=== PATIENT | female | born 1960 | race Caucasian/White ===

== ENCOUNTER → 2018-10-10 09:56 | Outpatient (CLI) | payer BC, SELFPAY ==
--- NOTE | 2018-10-10 10:01 | XR_ITS ---
XR hip LT 2-3V w/pelvis HISTORY: Left hip pain ITS.REASON: lt hip pain ORDERING PHYSICIAN: Emma Syed MD PATIENT AGE: 58 years COMPARISON: None FINDINGS: No fracture or dislocation is evident. No significant degenerative change. No lytic or blastic change. Unremarkable soft tissues IMPRESSION: Negative hip
--- NOTE | 2018-10-10 11:52 | XR_ITS ---
EXAM: XR lumbar spine 2-3V HISTORY: Low back pain ITS.REASON: ap lateral weightbearing ORDERING PHYSICIAN: Emma Syed MD PATIENT AGE: 58 years COMPARISON: None FINDINGS: There is minimal lumbar curvature convex left. Mild degenerative disc disease is present at L1-L2 and L5-S1. No fracture or dislocation. No lytic or blastic change. There is mild degenerative change of the right side joint IMPRESSION: Mild scoliosis with degenerative disc disease at L1-L2 and L5 S1
== END ==
PROVIDERS: PCP Family Medicine; Visit Provider Orthopaedic Surgery
DX: M25.552 Pain in left hip (principal); M54.9 Dorsalgia, unspecified
CPT/HCPCS: 72100; 73502

== ENCOUNTER → 2019-08-03 10:13 | Outpatient (CLI) | payer BC, SELFPAY ==
--- NOTE | 2019-08-03 10:18 | XR_ITS ---
PROCEDURE: XR CHEST 2V CLINICAL HISTORY: COUGH COMPARISON: CXR CHEST(2 VIEWS-NOT PORTABLE) from 12/01/2012 FINDINGS: The lung hollins are well-expanded and appear clear of infiltrate. There is mild or borderline cardiomegaly however the vascularity is normal and there is no pleural fluid. IMPRESSION: No acute findings. Dictated by: Dr. Bartolome Byrne MD 08/03/2019 11:[address] Bartolome Byrne MD in [facility] 08/03/2019 11:00
== END ==
PROVIDERS: PCP Nurse Practitioner Family; Visit Provider Nurse Practitioner Family
DX: R05 Cough (principal)
CPT/HCPCS: 71046

== ENCOUNTER → 2020-05-20 16:27 | Outpatient (CLI) | payer BC, SELFPAY ==
[2020-05-21 09:45] LABS: Covid-19 Nasal PCR Sendout UK NOT DETECTED
== END ==
PROVIDERS: PCP Family Medicine; Visit Provider Family Medicine
DX: Z03.818 Encounter for observation for suspected exposure to other biological agents ruled out (principal)
CPT/HCPCS: U0003

== ENCOUNTER 2021-06-30 08:53 | Emergency (ER) | payer BC, SELFPAY ==
[2021-06-30 09:04] VITALS: BP 181/80; PULSE 70; RESP 18; TEMP 36.8; O2SAT 97
[2021-06-30 09:05] VITALS: BP 181/80; PULSE 70; RESP 18; TEMP 36.8; O2SAT 97; BMI 39.9
--- NOTE | 2021-06-30 09:14 | XR_ITS ---
PROCEDURE: XR FINGER LT MIN 2V CLINICAL INDICATION: cat bite tip of finger COMPARISON: No exams were available for comparison FINDINGS: Comminuted minimally displaced fracture involving the tuft of the distal phalanx of 5th digit. No radiopaque foreign body. The distal fracture fragment is slightly displaced medially and anteriorly by 1-2 mm. IMPRESSION: Comminuted minimally displaced fracture tuft of the distal phalanx of the 5th digit Dictated by: Danial Vail MD 06/30/2021 10:32 Danial Vail MD in [facility] 06/30/2021 10:32
--- NOTE | 2021-06-30 09:21 | PC.NURSE ---
pt went to xray
--- NOTE | 2021-06-30 09:25 | PC.NURSE ---
Pt is back in room
[2021-06-30 09:30] VITALS: BP 139/54; PULSE 59; O2SAT 95
[2021-06-30 09:40] LABS: POC Glucose,Bedside 149 (70-110)
--- NOTE | 2021-06-30 09:55 | HMH.EDGENADL ---
ED Disposition Clinical Impression: Fracture of distal phalanx of finger Qualifiers: Encounter type: initial encounter Finger: little finger Fracture type: open Fracture alignment: displaced Laterality: left Qualified Code(s): S62.637B - Displaced fracture of distal phalanx of left little finger, initial encounter for open fracture Nailbed laceration, finger Qualifiers: Encounter type: initial encounter Qualified Code(s): S61.319A - Laceration without foreign body of unspecified finger with damage to nail, initial encounter Disposition: Home, Self-Care Condition on Discharge: Good Instructions: DI for Cat Bite, DI for Finger Fracture, DI for Laceration Repair Additional Instructions: Follow-up with orthopedics, Dr. Silva, next week. Call Saturday to make appointment. Take Augmentin as prescribed. [place] as needed for pain. Additional instructions for HAND LACERATION: Clean the wound daily with soap and water. Avoid submerging the wound. No swimming.reapply bandage and splint after cleansing. Return if any signs of infection including increasing pain, pus drainage, swelling, redness, red streaks, or fever. Additional instructions for CONTROLLED SUBSTANCES: You have been prescribed a medication that is a controlled substance. Controlled substances include pain medications known as opiates and sedative nerve medications known as benzodiazepines. Tramadol, fioricet, and gabapentin are also controlled substances. Some common opiates include: Codeine (such as Tylenol #3) Hydrocodone (Vicodin, Lortab, Lorcet, [place]) Oxycodone (Percocet, Percodan, Oxycodone, Oxy IR) Some common benzodiazepines include: Diazepam (Valium) Lorazepam (Ativan) Alprazolam (Xanax) Clonazepam (Klonopin) Oxazepam (Serax) All of these controlled substances are highly addictive and frequently abused. Misuse can and frequently does lead to addiction as well as overdose and . Medication should be stored in a locked cabinet or other secure storage unit. Do not store the medication in a motor vehicle. Short term supplies, 3 days or less, are prescribed because of the highly addictive nature of the medication. Any of the controlled substance medication NOT taken should be disposed of properly and NOT SAVED. The recommended method of disposing of unused medications is: Place the medicines in a sealable plastic bag. If the medicine is a solid, crush it or add water to dissolve it. Add something undesirable (cat litter, coffee grounds, etc.) Dispose of sealed bag in household trash Do not flush or pour unused medicines down a sink or drain. Controlled substances should not be shared, given away or sold. Because of the addictive nature and frequent abuse, these medications are sometimes stolen. These medications should be kept in a safe place where they cannot be stolen. Do not keep them in your car or purse. Lost or stolen prescriptions for controlled substances WILL NOT BE REFILLED in this emergency department, regardless of whether a police report was filed. Prescriptions: Hydrocod/Acet 5/325 mg [[place] 5/325mg tablet] 1 tab PO Q6HP PRN #10 tab PRN Reason: Pain Transmission Status: Sent to [facility] Amoxicillin/Potassium Clav [Augmentin 875-125 Tablet] 1 tab PO Q12H #20 tab Transmission Status: Pending to [facility] Referrals: Deven Zurita MD [Primary Care Provider] - Yoseph Silva JR, MD [Physician] - - Critical Care Critical Care Time: No Attestation: On 06/30/21, the high probability of a clinically significant, sudden or life threatening deterioration of the following system(s) required my full and direct attention, intervention and personal management. The time I documented below is in addition to time spent performing reported procedures but includes the following listed in this critical care notation. Medical Decision Making - Lewis Inquiry Pt receiving controlled substance: Yes Ka
[2021-06-30 10:59] VITALS: BP 159/70; PULSE 69; RESP 18; TEMP 37; O2SAT 100
== END 2021-06-30 10:59 | disposition home or self-care (01) ==
PROVIDERS: Emergency Provider Emergency Medicine; PCP Family Medicine
DX: S62.637B Displaced fracture of distal phalanx of left little finger, initial encounter for open fracture (principal); S61.317A Laceration without foreign body of left little finger with damage to nail, initial encounter; Z23 Encounter for immunization; W55.01XA Bitten by cat, initial encounter; Y92.019 Unspecified place in single-family (private) house as the place of occurrence of the external cause; E11.9 Type 2 diabetes mellitus without complications; I10 Essential (primary) hypertension; Z88.5 Allergy status to narcotic agent; F33.1 Major depressive disorder, recurrent, moderate
CPT/HCPCS: 11760; 26742; 73140; 82962; 90715; 96372; 99283

== ENCOUNTER → 2021-10-12 10:51 | Outpatient (CLI) | payer BC, SELFPAY ==
[2021-10-12 11:45] LABS: Chloride 102 mmol/L (98-107); Sodium 135 mmol/L (136-145)
[2021-10-12 11:46] LABS: Potassium 4.9 mmoL/L (3.5-5.1)
[2021-10-12 11:48] LABS: Blood Urea Nitrogen 25 mg/dl (7-17); Estimated Glomerular Filt Rate 73 ml/min (>60); GFR (African American) 88 ML/MIN (>60)
[2021-10-12 11:49] LABS: Anion Gap 12.9 mEq/L (5-15); Calcium 8.7 mg/dl (8.4-10.2); Carbon Dioxide 25 mmol/L (22.0-30.0); Glucose 133 mg/dl (74-100)
[2021-10-12 12:10] LABS: Free T4 (Free Thyroxine) 1.26 ng/dl (0.78-2.19)
[2021-10-12 12:11] LABS: Hemoglobin A1C 7.3 % (4.0-6.0)
[2021-10-12 12:25] LABS: Thyroid Stimulating Hormone 0.14 uIU/mL (0.465-4.68)
== END ==
PROVIDERS: Visit Provider Internal Medicine
DX: E11.9 Type 2 diabetes mellitus without complications (principal); Z79.84 Long term (current) use of oral hypoglycemic drugs; Z79.899 Other long term (current) drug therapy
CPT/HCPCS: 36415; 80048; 83036; 84439; 84443

== ENCOUNTER 2022-07-17 10:58 | Emergency (ER) | payer BC, SELFPAY ==
[2022-07-17 11:18] VITALS: BP 178/71; PULSE 78; RESP 18; TEMP 37; O2SAT 96; BMI 39.9
--- NOTE | 2022-07-17 11:28 | EXP.UTC ---
Discharge Plan Disposition Patient Disposition: Home, Self-Care Condition: Good Prescriptions Prescriptions: New amoxicillin-pot clavulanate [Augmentin] 500-125 mg tablet 1 tab PO Q12H 10 Days Qty: 20 0RF No Action quinapril 40 mg tablet 40 mg PO DAILY spironolactone 25 mg tablet 25 mg PO DAILY Jardiance 25 mg tablet 25 mg PO DAILY levothyroxine 100 mcg capsule 100 mcg PO DAILY escitalopram oxalate [Lexapro] 20 mg tablet 20 mg PO DAILY metformin 500 mg tablet 500 mg PO BID hydrocodone-acetaminophen 1 TAB tablet 1 tab PO Q6HP PRN (Reason: Pain) Qty: 10 0RF amoxicillin-pot clavulanate 1 EACH tablet 1 tab PO Q12H Qty: 20 0RF acyclovir 800 MG tablet 800 mg PO 5XDAY Qty: 25 1RF Referrals Follow up/Referrals: Yary Day MD [Primary Care Provider] - See instructions Activity Restrictions/Add. Instructions Additional Instructions/Restrictions: keep area clean and dry follow up with pcp if symptoms worsen or do not improve return or be seen in ed Clinical Impressions Clinical Impression: Cat bite of finger Instructions Patient Instructions: DI for Cat Bite Discharge ED Provider: Sis ([facility] [facility] [place] General Stated complaint: Cat bite RT index finger 07/16 Mode of Arrival: Ambulatory Source of Information: Patient Limitations: No Limitations Time Seen by Provider: 07/17/22 11:28 Description of Symptoms (Recalled from Triage Doc. by RN): pt comes in with c/o cat bite to left index finger. happened yesterday HEENT Symptoms (Recalled from RN notes): No Resp Symptoms (Recalled from RN notes): No Skin Symptoms (Recalled from RN notes): Yes MS Symptoms (Recalled from RN notes): No Functional Status (Recalled from RN notes): n/a History of Present Illness Provider Complaint: 62 yr old female presents for c/o cat bite to left index finger. happened yesterday pt states she was taking a 4 week old kitten out of a cage and it bite her. Related Data Home Medications Medication Instructions Recorded Confirmed empagliflozin 25 mg tablet 25 mg PO DAILY 10/10/18 10/10/18 (Jardiance) escitalopram oxalate 20 mg tablet 20 mg PO DAILY 10/10/18 10/10/18 (Lexapro) levothyroxine 100 mcg capsule 100 mcg PO DAILY 10/10/18 10/10/18 metformin 500 mg tablet 500 mg PO BID 10/10/18 10/10/18 quinapril 40 mg tablet 40 mg PO DAILY 10/10/18 10/10/18 spironolactone 25 mg tablet 25 mg PO DAILY 10/10/18 10/10/18 Previous Rx's Medication Instructions Recorded acyclovir 800 mg tablet 800 mg PO 5XDAY #25 tabs 09/01/19 amoxicillin 875 mg-potassium 1 tab PO Q12H #20 tabs 06/30/21 clavulanate 125 mg tablet hydrocodone 5 mg-acetaminophen 325 1 tab PO Q6HP PRN Pain #10 tabs 06/30/21 mg tablet amoxicillin 500 mg-potassium 1 tab PO Q12H 10 days #20 tabs 07/17/22 clavulanate 125 mg tablet (Augmentin) Allergies Allergy/AdvReac Type Severity Reaction Status Date / Time morphine Allergy Verified 07/17/22 11:21 Codeine Allergy Unknown GI UPSET Uncoded 07/23/17 14:30 From [facility] Allergy Unknown GI UPSET Uncoded 07/23/17 14:30 Worker's Comp Is this a Worker's Comp case?: No [facility] Disclaimer: The information contained in this section may have been updated after the patient was seen, as this information can be updated by other users. 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
[2022-07-17 11:51] VITALS: BP 178/71; PULSE 78; RESP 18; TEMP 37
== END 2022-07-17 11:51 | disposition home or self-care (01) ==
PROVIDERS: Emergency Provider Nurse Practitioner Family; PCP Family Medicine
DX: S61.250A Open bite of right index finger without damage to nail, initial encounter (principal); W55.01XA Bitten by cat, initial encounter
CPT/HCPCS: 99212; G0463

== ENCOUNTER → 2023-03-12 12:39 | Outpatient (CLI) | payer BC, SELFPAY ==
[2023-03-12 13:08] LABS: Creatinine,Urine Random 72 mg/dL (Not Estab.)
[2023-03-12 13:16] LABS: Microalbumin < 6.000 mg/L (0-16.7)
[2023-03-12 15:24] LABS: Alanine Aminotransferase 31 U/L (12-78); Albumin Level 4.8 g/dl (3.5-5.0); Albumin/Globulin Ratio 1.7 (1.1-1.8); Alkaline Phosphatase 85 U/L (38-126); Aspartate Amino Transferase 30 U/L (14-36); Bilirubin,Total 0.3 mg/dl (0.2-1.3); Blood Urea Nitrogen 20 mg/dl (7-17); Calcium 9.8 mg/dl (8.4-10.2); Carbon Dioxide 26 mmol/L (22.0-30.0); Chloride 101 mmol/L (98-107); Chol/HDL Ratio 3.2 (1-3.5); Cholesterol 154 mg/dl (140-200); Estimated Glomerular Filt Rate 56 ml/min (>60); GFR (African American) 68 ML/MIN (>60); Globulin 2.9 g/dL (1.3-3.2); Glucose 131 mg/dl (74-100); HDL Cholesterol 48 mg/dl (40-60); Sodium 140 mmol/L (136-145); Total Protein,Serum 7.7 g/dl (6.3-8.2); Triglycerides 237 mg/dl (30-150); VLDL Cholesterol 47 mg/dL (0-40)
[2023-03-12 15:35] LABS: Direct LDL Cholesterol 64.72 mg/dL (100-129)
[2023-03-12 15:56] LABS: Thyroid Stimulating Hormone 0.51 uIU/mL (0.465-4.68)
== END ==
LOC: LAB 12:39
PROVIDERS: PCP Family Medicine; Visit Provider Internal Medicine
DX: E11.9 Type 2 diabetes mellitus without complications (principal); E03.9 Hypothyroidism, unspecified; Z79.84 Long term (current) use of oral hypoglycemic drugs
CPT/HCPCS: 36415; 80053; 80061; 82043; 82570; 84443

== ENCOUNTER → 2023-05-21 15:42 | Outpatient (CLI) | payer BC, SELFPAY ==
--- NOTE | 2023-05-21 15:46 | MM_ITS ---
PROCEDURE INFORMATION: Exam: MG Bilateral Screening 3D Mammography Exam date and time: 05/21/2023 3:49 PM Age: 62 years old Clinical indication: Screening examination; No personal or family history of breast cancer TECHNIQUE: Imaging protocol: Bilateral Screening tomosynthesis and 2D mammography including computer-aided detection (CAD) when performed. COMPARISON: No relevant prior studies available. FINDINGS: MAMMOGRAPHY: Breast composition: The breasts are heterogeneously dense, which may obscure small masses. Mass: None. Architectural distortion: None. Calcifications: No suspicious calcifications. Asymmetric density: None. Skin thickening: None. Axillary adenopathy: None. IMPRESSION: No mammographic evidence of malignancy. Annual screening is recommended unless otherwise clinically indicated. ASSESSMENT: BI-RADS Category 1: Negative
== END ==
PROVIDERS: PCP Family Medicine; Visit Provider Emergency Medicine
DX: Z12.31 Encounter for screening mammogram for malignant neoplasm of breast (principal)
CPT/HCPCS: 77063; 77067

== ENCOUNTER 2024-07-07 14:15 | Outpatient (CLI) | payer MEDICARE, SELFPAY ==
[2024-07-07 16:55] LABS: Thyroid Stimulating Hormone 0.58 uIU/mL (0.465-4.68)
== END 2024-07-07 23:59 | disposition home or self-care (01) ==
LOC: LAB 14:24
PROVIDERS: PCP Emergency Medicine; Visit Provider Internal Medicine
DX: E03.9 Hypothyroidism, unspecified (principal)
CPT/HCPCS: 36415; 84443

== ENCOUNTER 2025-05-18 15:42 | Outpatient (CLI) | payer MEDICARE, SELFPAY ==
--- NOTE | 2025-05-18 15:45 | MM_ITS ---
PROCEDURE INFORMATION: Exam: MG Bilateral Screening 3D Mammography Exam date and time: 05/18/2025 3:54 PM Age: 64 years old Clinical indication: Screening examination TECHNIQUE: Imaging protocol: Bilateral Screening tomosynthesis and 2D mammography including computer-aided detection (CAD) when performed. COMPARISON: MG MM DIG SCREENING MAMM BI W/CAD 05/21/2023 3:49 PM FINDINGS: MAMMOGRAPHY: Breast composition: The breasts are heterogeneously dense, which may obscure small masses. Mass: No suspicious masses. Architectural distortion: None. Calcifications: No suspicious calcifications. Asymmetric density: None. Skin thickening: None. Axillary adenopathy: None. IMPRESSION: No mammographic evidence of malignancy. Annual screening is recommended unless otherwise clinically indicated. ASSESSMENT: BI-RADS Category 1: Negative.
--- OUTSIDE RECORDS SUMMARY | 2025-05-18 15:47 | XMS_ITS | Encounter Summary ---
Author Organization [facility] Address [address] [place] [address] Care Team Providers Care Network Contractor Name Role Phone Ab Day MD Primary Care Provider [phone] Encounter Details Date Type Department Care Team (Late Contact Info) Description 02/23/2025 Results Follow-Up [facility] Endocrinology [address] [place] [address] Dianna Washington, ROTARY DERRICK OPERATOR [address] [address] Social History Tobacco Use Types Packs/Day Years Used Date Smoking Tobacco: Former Cigarettes 0 01/01/1977 - 03/19/1982 Smokeless Tobacco: Never Alcohol Use Standard Drinks/Week Comments Not Currently 3 (1 standard drink = 0.6 oz pure alcohol) Alcoholic Drinks/day: Alcohol Comments Unknown Sex and Gender Information Value Date Recorded Sex Assigned at Not on file Legal Sex Female 6:52 PM EDT Gender Identity Not on file Sexual Orientation Not on file documented as of this encounter Plan of Treatment Upcoming Encounters Date Type Department Care Team (Late st Contact Info) Description 06/02/2025 2:20 PM EDT [facility] [address] [place] [address] Dianna Washington, ROTARY DERRICK OPERATOR [address] [address] documented as of this encounter Visit Diagnoses Not on filedocumented in this encounter Additional Health Concerns Assessment Noted Time A fall risk assessment has been complete d for the patient 02/22/2025 12:37 PM EDT A Body Mass Index follow-up plan has been documented for the patient 02/26/2025 6:41 PM EDT documented as of this encounter Care Teams Network Contractor Relationship Specialty Start Date End Date Ab Day MD [address] [place] [address] [address] [place] [address] PCP - General 10/16/22 documented as of this encounter
--- OUTSIDE RECORDS SUMMARY | 2025-05-18 15:47 | XMS_ITS | Encounter Summary ---
Author Organization [facility] Address [address] [place] [address] Care Team Providers Care Superintendent Transmission Name Role Phone Deven Zurita MD Primary Care Provider [phone] Ab Day MD Primary Care Provider [phone] Reason for Visit * Reason Comments Med Refill Encounter Details Date Type Department Care Team (Late Contact Info) Description 01/12/2021 Refill [facility] Endocrinology [address] [place] [address] Indio Porter MD [address] [place] [address] Social History Tobacco Use Types Packs/Day Years Used Date Smoking Tobacco: Former Alcohol Use Standard Drinks/Week Comments Yes 0 (1 standard drink = 0.6 oz pur e alcohol) Alcoholic Drinks/day: Alcohol Comments Unknown Sex and Gender Information Value Date Recorded Sex Assigned at Not on file Legal Sex Female 6:52 PM EDT Gender Identity Not on file Sexual Orientation Not on file documented as of this encounter Plan of Treatment Upcoming Encounters Date Type Department Care Team (Late Contact Info) Description 06/02/2025 2:20 PM EDT Office Visit [facility] Endocrinology [address] [place] [address] Dianna Washington, COST REPORT CLERK [address] [facility] [address] [place] [address] documented as of this encounter Visit Diagnoses Not on filedocumented in this encounter Care Teams Superintendent Transmission Relationship Specialty Start Date End Date Deven Zurita MD [address] [place] [address] PCP - General 12/16/20 10/15/22 Ab Day MD [address] [place], [place] [id number] [address] [place] [address] PCP - General 10/16/22 documented as of this encounter
--- OUTSIDE RECORDS SUMMARY | 2025-05-18 15:47 | XMS_ITS | Encounter Summary ---
Author Organization [facility] Address [address] [place] [address] Care Team Providers Care Food Service Employee Name Role Phone Deven Zurita MD Primary Care Provider [phone] Ab Day MD Primary Care Provider [phone] Reason for Visit * Reason Comments Med Refill Encounter Details Date Type Department Care Team ([facility] Contact Info) Description 01/03/2022 Refill [facility] Endocrinology [address] [place] [address] Indio Porter MD [address] [address] Type 2 diabetes mellitus with other specified complication, with long-term current use of insulin ([facility]) Social History Tobacco Use Types Packs/Day Years Used Date Smoking Tobacco: Former Smokeless Tobacco: Never Alcohol Use Standard Drinks/Week Comments Yes 0 [...] Description 06/02/2025 2:20 PM EDT Office Visit [facility] Endocrinology [address] [place] [address] Dianna Washington, MORTGAGE PROCESSING CLERK [address] [facility] [address] [place] [address] documented as of this encounter Visit Diagnoses Diagnosis Type 2 diabetes mellitus with other specified complication, with long-term current use of insulin documented in this encounter Care Teams Food Service Employee Relationship Specialty Start Date End Date Deven Zurita MD [address] [place] [address] PCP - General 12/16/20 10/15/22 Ab Day MD [address] [place] [address] [address] [place] [address] PCP - General 10/16/22 documented as of this encounter
--- OUTSIDE RECORDS SUMMARY | 2025-05-18 15:47 | XMS_ITS | Encounter Summary ---
Author Organization [facility] Address [address] [place] [address] Care Team Providers Care Bobbin Cleaner Hand Name Role Phone Deven Zurita MD Primary Care Provider [phone] Ab Day MD Primary Care Provider [phone] Reason for Visit * Reason Comments Med Refill Encounter Details Date Type Department Care Team (Late st Contact Info) Description 09/27/2021 Refill [facility] Endocrinology [address] [place] [address] Indio Porter MD [address] [address] Social History Tobacco Use Types [...] on file documented as of this encounter Miscellaneous Notes * Telephone Encounter - Keysha Moses RN - 10/02/2021 2:25 PM EST Appointment for follow up and refills scheduled on 10.03.21. SRESHMA Link * Telephone Encounter - Wendie Blum RD - 09/28/2021 12:18 PM EST rx for insulin already sent in documented in this encounter Plan of Treatment Upcoming Encounters Date Type Department Care Team (Late st Contact Info) Description 06/02/2025 2:20 PM EDT Office Visit [facility] Endocrinology [address] [place] [address] Dianna Washington, FRUIT PACKER FACE AND FILL [address] [facility] [address] [place] [address] documented as of this encounter Visit Diagnoses Not on filedocumented in this encounter Care Teams Bobbin Cleaner Hand Relationship Specialty Start Date End Date Deven Zurita MD [address] [place] [address] PCP - General 12/16/20 10/15/22 Ab Day MD [address] [place] [address] [address] [place] [address] PCP - General 10/16/22 documented as of this encounter
--- OUTSIDE RECORDS SUMMARY | 2025-05-18 15:47 | XMS_ITS | Encounter Summary ---
Author Organization [facility] Address [address] [place] [address] Care Team Providers Care Adult Ministries Director Name Role Phone Deven Zurita MD Primary Care Provider [phone] Ab Day MD Primary Care Provider [phone] Reason for Visit * Reason Comments Med Refill Encounter Details Date Type Department Care Team (Late st Contact Info) Description 03/31/2021 Refill [facility] Endocrinology [address] [place] [address] Indio Porter MD [address] [address] Social History Tobacco Use Types [...] encounter Miscellaneous Notes * Telephone Encounter - Indio Porter MD - 04/07/2021 12:43 PM EDT Would you please refill for her 125 mcg daily, 90 days, 3 refills * Telephone Encounter - Indio Porter MD - 04/04/2021 5:48 PM EDT I saw the lab I ordered documented in this encounter Plan of Treatment Upcoming Encounters Date Type Department Care Team (Late st Contact Info) Description 06/02/2025 2:20 PM EDT Office Visit [facility] Endocrinology [address] [place] [address] Dianna Washington, FOLDER SEAMER [address] [facility] [address] [place] [address] documented as of this encounter Visit Diagnoses Not on filedocumented in this encounter Care Teams Adult Ministries Director Relationship Specialty Start Date End Date Deven Zurita MD [address] [place] [address] PCP - General 12/16/20 10/15/22 Ab Day MD [address] [place] [address] [address] [place] [address] PCP - General 10/16/22 documented as of this encounter
--- OUTSIDE RECORDS SUMMARY | 2025-05-18 15:47 | XMS_ITS | Clinical Summary ---
Author Organization [facility] Address [address] [place] [address] Care Team Providers Care Cinetechnician Name Role Phone Ab Day MD Primary Care Provider [phone] Allergies Active Allergy Reactions Criticality Noted Date Comments Codeine Vomiting 07/23/2017 Diphenhydramine Unknown - Patient st ates they do not know rxn details Low 04/06/2020 Meperidine Other - please docum ent in the comment field Low 03/27/2012 Morphine Unknown - Patient st ates they do not know rxn details Low 09/11/2012 Pseudoephedrine Unknown - Patient st ates they do not know rxn details Low 10/02/2019 Medications albuterol 108 (90 Base) MCG/ACT inhaler 1 Active Aspirin Buf,ElJcpd-HgMmly-V gO, 81 MG tablet 8 Active escitalopram (Lexapro) 20 MG tablet TAKE 1 TABLET DAILY. 3 Active loratadine (Claritin) 10 MG tablet TAKE TABLET NEEDED 3 Active valsartan (Diovan) 160 MG tablet 2 Active spironolactone (Aldactone) 25 MG tabletIndications:P olycystic ovarian syndrome TAKE 1 TABLET BY MOUTH ONCE DAILY 90 tablet 2 3 Active ondansetron ODT (Zofran-ODT) 4 MG disintegrating tablet 4 Active zolpidem (Ambien) 10 MG tablet 4 Active LORazepam (Ativan) 1 MG tablet Take 0.5 tablets (0.5 mg) by mouth every 6 (six) hours if needed. 4 Active pen needle, diabetic (B-D UF III MINI PEN NEEDLES) 31G X 5 MM miscIndications:Chitra weiss mellitus type 2 without retinopathy Inject 1 each under the skin 2 (two) times a day. 100 each 2 4 Active Blood Glucose Monitoring Suppl (Blood Glucose Monitor System) w/Device kitIndications:Type 2 diabetes mellitus with other specified complication, with long-term current use of insulin Test 3 times each day, Dx E11.9 1 kit 4 Active Glucose Blood (Blood Glucose Test) stripIndications:Ty pe 2 diabetes mellitus with other specified complication, with long-term current use of insulin Use as directed to test blood glucose level 3 times per day DX E11.9 150 strip 11 4 Active Lancets miscIndications:Typ e 2 diabetes mellitus with other specified complication, with long-term current use of insulin Use to test blood glucose level up to 3 times per day DX E11.9 150 each 11 4 Active Bempedoic Acid 180 MG tabletIndications:M ixed hyperlipidemia Take 180 mg by mouth daily. 90 tablet 1 5 Active empagliflozin (Jardiance) 25 MGIndications:Type 2 diabetes mellitus with other specified complication, with long-term current use of insulin Take 1 tablet by mouth daily. 90 tablet 3 5 02/23/20 26 Active metFORMIN (Glucophage) 1000 MG tabletIndications:T ype 2 diabetes mellitus with other specified complication, with long-term current use of insulin Take 1 tablet by mouth 2 times a day with meals. 180 tablet 3 5 02/23/20 26 Active insulin lispro protamine-insulin lispro (HumaLOG MIX 75/25 KWIKPEN) (75-25) 100 UNIT/ML injection penIndications:Type 2 diabetes mellitus with other specified complication, with long-term current use of insulin Inject 10 units in the AM and 32 units nightly before meals. Adjust doses with CGM, MDD 60 units. 60 mL 3 5 Active semaglutide (Ozempic, 2 MG/DOSE,) 8 MG/3ML solution pen-injectorIndicat ions:Type 2 diabetes mellitus with other specified complication, with long-term current use of insulin Inject 2 mg under the skin 1 time per week. 9 mL 3 5 02/23/20 Active levothyroxine (Synthroid, Levoxyl) 125 MCG tabletIndications:H ypothyroidism, unspecified type Take 1 tablet by mouth daily. 90 tablet 3 5 02/27/20 Active Active Problems Problem Noted Date Diagnosed Date Obesity (BMI 30-39.9) 02/26/2025 Other fatigue 02/26/2025 Hyperlipidemia 10/28/2024 Class 2 severe obesity due t o excess calories with serious comorbidity and body mass index (BMI) of 37.0 to 37.9 in adult 03/08/2023 Morbid obesity with body mass index (BMI) of 40. 0 or higher 03/01/2022 Glaucoma suspect of both eyes 05/27/2020 Vitreous floaters of both eyes 05/27/2020 Hypercalcemia 05/26/2019 Asthma 09/11/2012 Depression 09/11/2012 Type 2 diabetes mellitus, wi long-term current use of insulin 09/11/2012 Essential (primary) hypertension 09/11/2012 Hypothyroidism 09/11/2012 Polycystic ovarian syndrome 09/11/2012 Resolved Problems Problem Noted Date Diagnosed Date Resolved Date Nuclear sclerosis of both eyes 05/27/2020 04/25/2025 Encounters Date Type Department Care Team Description 02/23/2025 Results Follow-Up [facility] Endocrinology [address] [place] [address] Dianna Washington APRN 02/22/2025 12:20 PM EDT Office Visit [facility] End[facility]ology [address] [place] [address] Dianna Washington, MOTOR BOSS Type 2 diabetes mellitus with other specified complication, with long-term current use of insulin ([facility]) (Primary Dx); Hypothyroidism, unspecified type; Other fatigue; Obesity (BMI 30-39.9); Hyperlipidemia, unspecified hyperlipidemia type 02/22/2025 Travel 02/17/2025 Travel from Last 3 Months Immunizations Immunization Administration Dates Next Due Influenza, seasonal, injectable 04/05/2011 Pneumococcal Polysaccharide PPV23 06/05/2011 TD (adult), 2 Lf tetanus tox oid, preservative free, adsorbed 08/05/2001 Family History Medical History Relation Name Comments Heart disease Father Elmer Hypertension Father Elmer Obesity Father [place] Diabetes Mother Devin Diabetes type II Mother Edvin Heart disease Mother Devin Hypertension Mother Devin Thyroid disease Mother Devin Diabetes Other 1 Heart disease Other 2 Hypertension Other 3 Diabetes type II Sister Nancy Thyroid disease Sister Nancy Relation Name Status Comments Father Elmer Mother Devin Other 1 Other 2 Other 3 Sister Nancy Social History Tobacco Use Types Packs/Day Years [...] on file Sexual Orientation Not on file Last Filed Vital Signs Vital Sign Reading Time Taken Comments Blood Pressure 137/80 02/22/2025 12:35 PM EDT Pulse 78 10/23/2024 11:03 AM EDT Temperature 37.1 C (98.7 F) 06/04/2019 9:21 AM EDT Respiratory Rate - - Oxygen Saturation - - Inhaled Oxygen Concentration - - Weight 105 kg (231 lb 7.7 oz) 02/22/2025 12:35 P M EDT Height 165.1 cm (5' 5 ) 02/22/2025 12:35 PM EDT Body Mass Index 38.52 02/22/2025 12:35 PM EDT Plan of Treatment Upcoming Encounters Date Type Department Care Team (Late st Contact Info) Description 06/02/2025 2:20 PM EDT [facility] [address] [place] [address] Dianna Washington, MOTOR BOSS [address] [place] [address] Health Maintenance Due Date Last Done Comments [facility]-Bone Density Scan 1959 [facility]-Depression Screening 1959 [facility]-Hepatitis C Screening 1959 [facility]-Medicare Annual Wellness (AWV) 1959 [facility]-Infant/Child/Adol SDOH Screenings 1959 Diabetes: Dental Exam 1969 [facility]- SDOH Screenings 1977 [facility]-Adult SDOH Screenings 1977 CT Colonography 2004 Colonoscopy 2004 FIT-DNA 2004 FIT 2004 FOBT 2004 Sigmoidoscopy 2004 [facility]-Colorectal Cancer Screening 2004 [facility]-Breast Cancer Screening 2009 [facility]-Zoster Vaccines (1 of 2) 2009 [facility]-Pneumococcal Vaccine: 50+ Years (2 of 2 - PCV) 06/05/2012 06/05/2011 [facility]-RSV Vaccine: 60+ Years or (1 - Risk 60-74 years 1-dose series) 2019 [id number] Vaccine ( - season) 2025 06/21/2021, 11/02/2020, 10/05/2020 [facility]-Influenza Vaccine (#1) 04/05/202506/11, 05/31/2021, 04/05/2011 [facility]-Diabetes: Hemoglobin A1C 2025, 10/23/2024, 06/26/2024, Additional history exists [facility]-DTaP,Tdap,and Td Vaccines (2 - Td or Tdap) 06/30/2031 06/30/2021, 08/05/2001 [facility]-Hepatitis A Vaccines Aged Out 07/18/2018 No longer eligible based on patient's age to complete this topic [facility]-Obesity Intervention Completed 025, 10/23/2024, 06/26/2024, Additional history exists HPV Vaccines Aged Out No longer eligi ble based on patient's age to complete this topic [facility]-HIB Vaccines Aged Out No longer e ligible based on patient's age to complete this topic [facility]-IPV Vaccines Aged Out No longer e ligible based on patient's age to complete this topic [facility]-Rotavirus Vaccines Aged Out No lo nger eligible based on patient's age to complete this topic Procedures Procedure Name Priority Date/Time Associated Diagnosis Comments VITAMIN D, 1, 25-DIHYDROXY Routine 02/22/2025 1:30 PM EDT Type 2 diabetes mellitus with other specified complication, with long-term current use of insulin (CMS/HCC) Other fatigue VITAMIN B12, SERUM Routine 02/22/2025 1: 30 PM EDT Type 2 diabetes mellitus with other specified complication, with long-term current use of insulin (CMS/[facility]) Other fatigue TSH REFLEX FT4 Routine 02/22/2025 1:30 PM EDT Type 2 diabetes mellitus with other specified complication, with long-term current use of insulin (CMS/[facility]) Other fatigue POCT GLYCOSYLATED HEMOGLOBIN (HGB A1C) Routine 02/22/2025 12:56 PM EDT Type 2 diabetes mellitus with other specified complication, with long-term current use of insulin (CMS/[facility]) from Last 3 Months Results * TSH Reflex FT4 (02/22/2025 1:30 PM EDT) Thyroid Stimulating Hormone, Plasma 0.70 0.40 - 4.20 uIU/mL 02/22/2025 5:51 PM EDT [facility] Blood Venous blood specimen / Unknown Venipuncture / Unknown 02/22/2025 1:30 PM EDT 02/22/2025 3:40 PM EDT Dianna Washington APRN LAB BLOOD ORDERABLES Final Result [facility] [address] [place] [address] * Vitamin D 1,25 dihydroxy (02/22/2025 1:30 PM EDT) VITAMIN D, 1, 25-DIHYDROXY 35.6 19.9 - 79.3 pg/mL 02/25/2025 5:31 AM EDT [facility] Blood Venous blood specimen / Unknown Venipuncture / Unknown 02/22/2025 1:30 PM EDT 02/22/2025 3:40 PM EDT Dianna L Felix MOTOR BOSS LAB BLOOD ORDERABLES Final Result Performing Organization Address City/[facility]/ZIP Co de Phone Number [facility] [address] [place] [address] * Vitamin B12 (02/22/2025 1:30 PM EDT) [facility] Vitamin B12, Serum 482 210 - 1,033 pg/mL 02/22/2025 5:57 PM EDT [facility] Blood Venous blood specimen / Unknown Venipuncture / Unknown 02/22/2025 1:30 PM EDT 02/22/2025 3:40 PM EDT Dianna L Felix MOTOR BOSS LAB BLOOD ORDERABLES Final Result Performing Organization Address [facility] Co de Phone Number [facility] [address] [place] [address] * POCT glycosylated hemoglobin (Hb A1C) (02/22/2025 12:56 PM EDT) [facility] POCT Hemoglobin A1C 7.1 <5.7% Non-Diabet ic % [facility] Kit Lot Number [id number] [facility] Kit Expiration Date 11/2026 [facility] Blood Venous blood specimen / Unknown 02/22/2025 12:56 PM EDT Dianna L Felix MOTOR BOSS POINT OF CARE TEST ENTER/E DIT ORDERABLES Final Result Performing Organization Address City/[facility] Co de Phone Number [facility] [address] [place] [address] from Last [address] [facility] MEDIC[facility] Care Teams Cinetechnician Relationship Specialty Start Date End Date Ab Day MD [address] [place] [address] [address] [place] [id number] PCP - General 10/16/22
--- OUTSIDE RECORDS SUMMARY | 2025-05-18 15:47 | XMS_ITS | Clinical Summary ---
Author Organization [facility] Address [address] [place] [address] Care Team Providers Care Warp Yarn Sorter Name Role Phone Unavailable Primary Care Provider Unavailabl e Source Comments This information has been disclosed to you from confidential records protectedfrom disclosure by state law. You shall make no further disclosure of thisinformation without the specific, written, and informed release of theindividual to whom it pertains, or as otherwise permitted by law. A generalauthorization for the release of medical or other information is not sufficientfor the purposes of therelease of HIV test results or diagnoses. [id number] Allergies Active Allergy Reactions Criticality Noted Date Comments Meperidine (Pf) 03/27/2012 Morphine 03/27/2012 Medications glyBURIDE-metfo rmin (GLUCOVANCE) 5-500 mg per tablet Take 2 tablets by mouth 2 (two) times daily with meals. Active quinapril (ACCUPRIL) 40 MG tablet Take 40 mg by mouth daily. Active levothyroxine (SYNTHROID, LEVOTHROID) 125 MCG tablet Take 125 mcg by mouth daily. Active escitalopram (LEXAPRO) 20 MG tablet Take 20 mg by mouth daily. Active zolpidem (AMBIEN) 10 mg tablet Take 10 mg by mouth nightly as needed. Active fluticasone-de meterol (ADVAIR) 100-50 mcg/dose diskus inhaler Inhale 1 puff into the lungs. Active albuterol (PROVENTIL,VENT MARCELLUS) 90 mcg/actuation inhaler Inhale 2 puffs into the lungs every 6 (six) hours as needed. Active multivitamin (MULTIVITAMIN) tablet Take 1 tablet by mouth daily. Active loratadine (CLARITIN) 10 mg tablet Take 10 mg by mouth daily. Active liraglutide (VICTOZA) 0.6 mg/0.1 mL (18 mg/3 mL) PnIj Inject 1.8 mg into the skin daily. Active pioglitazone (ACTOS) 15 MG tablet Take 15 mg by mouth daily. Active Social History Tobacco Use Types Packs/Day Years Used Date Smoking Tobacco: Never Assessed Comments Unknown Sex and Gender Information Value Date Recorded Sex Assigned at Not on file Legal Sex Female 11:52 PM EST Gender Identity Not on file Sexual Orientation Not on file Plan of Treatment Not on file
--- OUTSIDE RECORDS SUMMARY | 2025-05-18 15:47 | XMS_ITS | Encounter Summary ---
Author Organization [facility] Address [address] [place] [address] Care Team Providers Care County Or City Auditor Name Role Phone Deven Zurita MD Primary Care Provider [phone] Ab Day MD Primary Care Provider [phone] Reason for Visit * Reason Comments Med Refill Encounter Details Date Type Department Care Team (Late Contact Info) Description 02/23/2021 Refill [facility] Endocrinology [address] [place] [address] Indio Porter MD [address] [place] [address] Social History Tobacco Use Types [...] Description 06/02/2025 2:20 PM EDT Office Visit [facility] Endocrinology [address] [place] [address] Dianna Washington, BODY TRIMMER [address] [facility] [address] [place] [address] documented as of this encounter Visit Diagnoses Not on filedocumented in this encounter Care Teams [place] Auditor Relationship Specialty Start Date End Date Deven Zurita MD [address] [place] [id number] PCP - General 12/16/20 10/15/22 Ab Day MD [address] [place], [place] [id number] [address] [place] [address] PCP - General 10/16/22 documented as of this encounter
--- OUTSIDE RECORDS SUMMARY | 2025-05-18 15:47 | XMS_ITS | Clinical Summary ---
Author Organization [facility] Address [address] [place] [address] Care Team Providers Care Preventative Maintenance Technician Name Role Phone Ab Day MD Primary Care Provider [phone] Medications escitalopram (LEXAPRO) 20 MG tablet TAKE ONE TABLET BY MOUTH EVERY DAY 30 tablet 1 01/04/2022 Active valsartan (DIOVAN) 160 MG tablet TAKE 1 TABLET BY MOUTH ONCE DAILY 30 tablet 1 01/04/2022 Active Social History Tobacco Use Types Packs/Day Years Used Date Smoking Tobacco: Never Assessed Abuse Screen Answer Date Recorded Unsafe at Home or Work/School Not on file Feels Threatened by Someone? Not on file 04/2023 Does Anyone Keep You from Co ntacting Others or Doint Things Outside the Home? Not on file 05/13/2023 Physical Sign of Abuse Present Not on file 1 Housing Stability Answer Date Recorded Current Living Arrangements Not on file 04/2023 Potentially Unsafe Housing Conditions Not on erica e 05/13/2023 Family and Community Support Answer Neal e Recorded Help with Day-to-Day Activities Not on file 05/13/2023 Lonely or Isolated Not on file 05/13/2023 Employment Answer Date Recorded Do you want help finding or keeping work or a leidy b? Not on file 05/13/2023 Disabilities Answer Date Recorded Concentrating, Remembering, or Making Decisions Difficulty Not on file 05/13/2023 Doing Errands Independently Difficulty Not on fi le 05/13/2023 Education Answer Date Recorded Help with school or training? Not on file Preferred Language Not on file 05/13/2023 Comments Unknown Sex and Gender Information Value Date Recorded Sex Assigned at Not on file Legal Sex Female 10:14 AM EDT Gender Identity Not on file Sexual Orientation Not on file Plan of Treatment Health Maintenance Due Date Last Done Comments DXA SCAN 1959 MAMMOGRAM 1999 COLOGUARD 2004 COLON CANCER SCREENING 5 YEA R SIGMOIDOSCOPY 2004 COLONOSCOPY 2004 COL[address] CANCER SCREENING 2004 CT COLONOGRAPHY 2004 FECAL OCCULT BLOOD TEST 2004 FIT Testing (1 year) 2004 ZOSTER VACCINE (1 of 2) 2009 Pneumococcal Vaccine 50+ (2 of 2 - PCV) 06/05/2012 06/05/2011 ANNUAL PHYSICAL 07/03/2021 HEPATITIS C SCREENING 07/03/2021 INFLUENZA VACCINE 03/05/2025 04/05/2011 COVID-19 Vaccine (1 - 2023-2 5 season) 2025 TDAP/TD VACCINES (3 - Td or Tdap) 06/30/2031 021, 08/05/2001 HEMOGLOBIN A1C Discontinued 02/22/2025, 03/2 08/2024, 06/26/2024, Additional history exists Insurance EMPLOYEE Care Teams Preventative Maintenance Technician Relationship Specialty Start Date End Date Ab Day MD [address] [place] [address] PCP - General Family Medicine 07/03/21
--- OUTSIDE RECORDS SUMMARY | 2025-05-18 15:47 | XMS_ITS | Encounter Summary ---
Author Organization [facility] Address [address] [place] [address] Care Team Providers Care Odd Job Worker Name Role Phone Ab Day MD Primary Care Provider [phone] Reason for Visit * Reason Comments Med Refill Encounter Details Date Type Department Care Team (Late st Contact Info) Description 01/01/2023 Refill [facility] Endocrinology [address] [place] [address] Indio Porter MD [address] [address] Type 2 diabetes mellitus with other specified complication, with long-term current use of insulin ([facility]) Social History Tobacco Use Types Packs/Day Years [...] encounter Miscellaneous Notes * Telephone Encounter - Lizabeth Mclaughlin - 01/02/2023 7:54 AM EDT Per protocol, 1 medication(s), metformine, has been approved for 90 day supply with 0 refill(s) to [facility] pharmacy. Enough refills until appointment on 03/05/[address] Cook. Please request additional refills at appointment. documented in this encounter Plan of Treatment Upcoming Encounters Date Type Department Care Team ([facility] st Contact Info) Description 06/02/2025 2:20 PM EDT Office Visit [facility] Endocrinology [address] [place] [address] Dianna Washington, DETECTIVE CAPTAIN [address] [facility] [address] [place] [address] documented as of this encounter Visit Diagnoses Diagnosis Type 2 diabetes mellitus with other specified complication, with long-term current use of insulin documented in this encounter Additional Health Concerns Assessment Noted Time A Body Mass Index follow-up plan has been documented for the patient 10/16/2022 12:04 PM EDT documented as of this encounter Care Teams Odd Job Worker Relationship Specialty Start Date End Date Ab Day MD [address] [place] [address] [address] [place] [id number] PCP - General 10/16/22 documented as of this encounter
== END 2025-05-18 23:59 | disposition home or self-care (01) ==
LOC: RAD 15:43
PROVIDERS: PCP Emergency Medicine; Visit Provider Emergency Medicine
DX: Z12.31 Encounter for screening mammogram for malignant neoplasm of breast (principal); R92.333 Mammographic heterogeneous density, bilateral breasts
CPT/HCPCS: 77063; 77067